=== PATIENT | male | born 2000 | race Caucasian/White ===

== ENCOUNTER 2023-06-17 12:44 | Emergency (ER) | payer SELFPAY ==
[2023-06-17] MEDS ORDERED: Ketorolac Tromethamine 30 MG/ML VIAL ONE (14:14)
== END 2023-06-17 15:13 | disposition home or self-care (01) ==
LOC: ERS 12:44
DX: R07.9 Chest pain, unspecified (principal)
CPT/HCPCS: 71045; 93005; 96374; J1885